=== PATIENT | male | born 1985 | race Two or more races ===

== ENCOUNTER 2017-08-01 19:58 | Emergency (ER) | payer OTHER ==
[~2017-08-01] VITALS: Ht 170.2 cm; Wt 70.0 kg
[2017-08-01 20:20] LABS: HEMATOCRIT 48.2 % (39.2-51.8); HEMOGLOBIN 16.3 g/dL (13.7-18.0); WHITE BLOOD COUNT 13.4 x10^3/uL (3.4-10)
[2017-08-01] MEDS ORDERED: morphine SULFATE 10 MG/ML, 1ML ONE (20:24)
[2017-08-01] MEDS ORDERED: ASPIRIN 81 MG TABLET CHEW ONE (20:25)
[2017-08-01] MEDS ORDERED: ONDANSETRON 2MG/ML, 2ML ONE (20:25)
[2017-08-01] MEDS ORDERED: SODIUM CHLORIDE FLUSH 10ML SYR IVF ONE (20:30)
[2017-08-01] MEDS ORDERED: MORPHINE SULFATE 4 MG/ML, 1ML IVPush PRN (20:30)
[2017-08-01] MEDS ORDERED: KETOROLAC 30 MG/1 ML IVPush ONE (20:30)
[2017-08-01] MEDS ORDERED: ONDANSETRON 2MG/ML, 2ML IVPush ONE (20:30)
[2017-08-01] MEDS ORDERED: ASPIRIN 81 MG TABLET CHEW PO ONE (20:30)
[2017-08-01] MEDS ORDERED: PLEASE ENTER ALLERGIES MC SCH ×2 (20:30)
[2017-08-01] MEDS ORDERED: SODIUM CHLORIDE 0.9% 1,000ML IVBOLUS ONE (20:30)
[2017-08-01] MEDS ORDERED: KETOROLAC 30 MG/1 ML ONE (20:30)
[2017-08-01 20:31] LABS: BLOOD UREA NITROGEN 15 mg/dL (7-18)
[2017-08-01 20:34] LABS: IS PT STATUS REG ER OR PRE ER? YES
[2017-08-01 20:44] VITALS: BP 127/95
== END 2017-08-01 21:29 | disposition home or self-care (01) ==
LOC: ED 21:15
DX: R07.89 Other chest pain (principal); J20.9 Acute bronchitis, unspecified; Z79.82 Long term (current) use of aspirin
CPT/HCPCS: 36415; 71010; 80048; 82040; 84484; 85025; 85379; 93005; 96361; 96374; 96375; 99285; J1885; J2405; J7030